=== PATIENT | female | born 1990 | race African-American/Black ===

== ENCOUNTER 2018-11-19 16:50 | Inpatient (IN) | payer OTHER ==
[2018-11-19] MEDS ORDERED: TUBERCULIN PPD 5 TU/0.1ML SYRINGE (IN PATIENT USE ONLY) ID ONE (17:07)
[2018-11-19 17:41] VITALS: BMI 30.2
[2018-11-19] MEDS: DEXTROSE 5%-LACTATED RINGERS 1,000 ML IV SCH (18:00)
[2018-11-19 18:22] LABS: BASO % 0.3 % (0-2.0); EOS % 0.6 % (0-4.5); HEMATOCRIT 34.2 % (32.4-45.2); HEMOGLOBIN 11.1 GM/dL (10.7-15.3); LYMPH % 20.4 % (8-40); MCH 28.7 pg (25.7-33.7); MCHC 32.5 g/dl (32.0-36.0); MEAN CELL VOLUME 88.4 fl (80-96); MEAN PLT VOLUME 9.9 fl (7.5-11.1); MONO % 9.2 % (3.8-10.2); NEUT % 69.5 % (42.8-82.8); PLATELET COUNT 218 K/MM3 (134-434); RBC 3.87 M/mm3 (3.60-5.2); RDW 13.2 % (11.6-15.6); WHITE BLOOD COUNT 8.9 K/mm3 (4.0-10.0)
[2018-11-19 18:37] LABS: INR 0.9 (0.83-1.09); PROTHROMBIN TIME (PATIENT) 10.6 SEC (9.7-13.0)
[2018-11-19 18:54] LABS: CALCIUM 8.3 mg/dL (8.5-10.1); CREATININE 0.6 mg/dL (0.55-1.3); POTASSIUM 3.9 mmol/L (3.5-5.1)
[2018-11-19] MEDS ORDERED: PROMETHAZINE HCL 25 MG/1 ML VIAL IVPUSH ONE (20:27)
[2018-11-19] MEDS ORDERED: BUTORPHANOL TARTRATE 1 MG/ML VIAL IVPB ONE (20:27)
[2018-11-19] MEDS ORDERED: DINOPROSTONE 10 MG VAGINAL SUPPOSITORY VG ONE (20:31)
--- NOTE | 2018-11-19 20:32 | HP ---
Past Medical History - Primary Care Physician PCP:: Kathleen Teixeira - Admission Chief Complaint: 27yo P0 @ 39.1 wks for IOL, no VB, no LOF, + FM History of Present Illness: 1. Sickle trait - FOB neg, as well as negative for SMA and non syndromic hearing loss 2. GBS neg History Source: Patient, Medical Record Limitations to Obtaining History: No Limitations - Past Medical History ...: 2 ...Para: 0 ...Term: 0 ...: 0 ...Spon : 0 ...Induced : 1 ...Multiple Gestation: 0 ...LMP: 02/19/18 ... Weeks Gestation by Dates: 39.0 ...EDC by Dates: 11/26/18 ...EDC by Sono: 11/25/18 - Past Surgical History Past Surgical History: Yes: None Hx Myomectomy: No Hx Transabdominal Cerclage: No Additional Surgical History: TOP x 1 - Smoking History Smoking history: Never smoked Have you smoked in the past 12 months: No - Alcohol/Substance Use Hx Alcohol Use: No History of Substance Use: reports: None - Social History Usual Living Arrangement: Yes: With Spouse Home Medications - Allergies Allergies/Adverse Reactions: Allergies Allergy/AdvReac Type Severity Reaction Status Date / Time mushroom Allergy Severe Swelling Verified 11/19/18 17:10 - Home Medications Home Medications: Ambulatory Orders Pnv No.95/Ferrous Fum/Folic AC [ Formula] 1 each PO DAILY 11/06/18 Family Disease History - Family Disease History Family History: Unremarkable Review of Systems - Review of Systems Constitutional: reports: No Symptoms Eyes: reports: No Symptoms HENT: reports: No Symptoms Neck: reports: No Symptoms Cardiovascular: reports: No Symptoms Respiratory: reports: No Symptoms Gastrointestinal: reports: No Symptoms Genitourinary: reports: No Symptoms Breasts: reports: No Symptoms Reported Musculoskeletal: reports: No Symptoms Integumentary: reports: No Symptoms Neurological: reports: No Symptoms Endocrine: reports: No Symptoms Hematology/Lymphatic: reports: No Symptoms Psychiatric: reports: No Symptoms Pain Intensity: 0 Physical Exam - Maternity Vital Signs: Vital Signs Temperature 98.0 F 11/19/18 20:00 Pulse Rate 84 11/19/18 20:00 Respiratory Rate 18 11/19/18 20:00 Blood Pressure 120/74 11/19/18 20:00 O2 Sat by Pulse Oximetry (%) Constitutional: Yes: Well Nourished, No Distress, Calm Eyes: Yes: WNL, Conjunctiva Clear, EOM Intact HENT: Yes: WNL, Atraumatic, Normocephalic Neck: Yes: WNL, Supple, Trachea Midline Cardiovascular: Yes: WNL, Regular Rate and Rhythm Lungs: Clear to auscultation Breast(s): Yes: WNL - Abdominal Exam/OB Fundal Height: 39 Number of Fetuses: Single Presentation: Vertex Contractions: No Monitor Mode: External Heart Rate (range): 130 Heart Rate Location: Midline Category: I Accelerations: Uniform Decelerations: None - Vaginal Exam/OB Vaginal Bleediing: No Speculum Exam: No Dilatation (cm): 1 Effacement (%): short Amniotic Membrane Status: Intact Amniotic Fluid: Yes: Clear Meconium: Light Presentation: Vertex/Position Station: -3 - Physical Exam Musculoskeletal: Yes: WNL Extremities: Yes: WNL Edema: No Integumentary: Yes: WNL ...Motor Strength: WNL Psychiatric: Yes: WNL, Alert, Oriented - Labs Lab Results: Opos/NR/HepB neg/HIV neg/RI/GCT - 100/ CBC, BMP 11/19/18 17:20 11/19/18 17:20 Assessment/Plan 27yo P0 @ 39.1 wks Admit to L&D for IOL at term Labs, IVF Category 1 FHR EFW 7.5lb, gynecoid pelvis Cervidil placed into posterior fornix pros and cons of CURTIS vs. c/section discussed labor consent signed all questions answered
[2018-11-20] MEDS: DEXTROSE 5%-LACTATED RINGERS 1,000 ML IV SCH (00:30)
--- NOTE | 2018-11-20 09:58 | PN ---
Ante-Partal Exam - Subjective Subjective: w/o complaints. She feels weak contractions and good movement. Vital Signs: Vital Signs Temperature 98.6 F 11/20/18 08:00 Pulse Rate 86 11/20/18 09:00 Respiratory Rate 18 11/20/18 09:00 Blood Pressure 120/85 11/20/18 09:00 O2 Sat by Pulse Oximetry (%) Bleeding: No Headache: No Visual changes: No Right upper quadrant pain: No Pain (scale 1-10): 150 - Contractions Contractions: Yes (q4min) Regularity: Regular Intensity: Mild Monitor Mode: External - Exam during Labor Variability: Minimal, Moderate Heart Rate Location: Midline Category: II Monitor Accelerations: Absent Monitor Decelerations: Variable Exam: Vaginal Dilatation (cm): 0 Effacement (%): 50 Amniotic Membrane Status: Intact Presentation: Vertex Station: -3 (Adequate gynecoid pelvimetry) - Intrapartum Hemorrhage Risk Medium Risk Factors: None High Risk Factors: None Risk Score: 0 Risk Level: Low Risk - Assessment/Plan Assessment/Plan: P0 with at 39w2d admitted for labor indx. Pt is not in labor. Fetus with Category II tracing. Pt had cervidil removed earlier. She showered and ate. plan to monitor tracing. The pt's position was changed to lateral. Clinical data was d/w pt.
[2018-11-20] MEDS ORDERED: LIDO 2%/EPI 1:200000 PRESRVFRE (20 ML SDVIAL) ONE (17:12)
[2018-11-20] MEDS: ELECTROLYTE-148 SOLN 1,000 ML IV SCH (18:00)
[2018-11-20] MEDS ORDERED: ELECTROLYTE-148 SOLN 500 ML IV SCH (18:00)
[2018-11-20] MEDS ORDERED: CITRIC ACID/SODIUM CITRATE 30 ML UNIT-DOSE CUP PO ONE (18:30)
[2018-11-20] MEDS ORDERED: ePHEDrine SULFATE 50 MG/1 ML AMPULE ONE (19:57)
[2018-11-20] MEDS ORDERED: morphine SULFATE/Preservative Free 0.5 MG/ML (1cc Syringe) ONE (19:57)
[2018-11-20] MEDS ORDERED: ceFAZolin SODIUM 1 GM VIAL ONE (20:12)
[2018-11-20] MEDS ORDERED: OXYTOCIN 10 UNITS/ML VIAL ONE (20:13)
[2018-11-20] MEDS: OXYTOCIN 20 UNITS in 0.9% NS 20 UNIT/1,000 ML INFUS.BAG IV SCH (21:25)
[2018-11-20] MEDS ORDERED: OXYTOCIN 20 UNITS in 0.9% NS 20 UNIT/1,000 ML INFUS.BAG IV ONE (21:28)
--- NOTE | 2018-11-20 21:41 | PN ---
Progress Note (SOAP) - Subjective Chief Complaint: Pt continued to have variable decels throughout the day. The pitocin induction could not be started due to Category II tracing. The pt ate regular diet at 9am and the decision was to proceed with C/S once the pt is 8hrs NPO. - Current Medications Current Medications: Active Medications Dextrose/Lactated Ringer's (D5-Lr -) 1,000 mls @ 125 mls/hr IV ASDIR [facility] Last Admin: 11/19/18 18:00 Dose: 125 mls/hr Dextrose/Lactated Ringer's (D5-Lr -) 1,000 mls @ 125 mls/hr IV ASDIR [facility] Last Admin: 11/20/18 00:30 Dose: 125 mls/hr Oxytocin/Sodium Chloride (Normal Saline+20 Units Oxytocin -) 20 unit in 1,000 mls @ 125 mls/hr IV ASDIR LAURIE Stop: 11/21/18 17:44 Parenteral Electrolytes (Plasma-Lyte 148 -) 1,000 mls @ 125 mls/hr IV ASDIR [facility] Last Admin: 11/20/18 18:00 Dose: 125 mls/hr - Objective Vital Signs: Vital Signs Temperature 97.9 F 11/20/18 14:00 Pulse Rate 71 11/20/18 15:00 Respiratory Rate 18 11/20/18 15:00 Blood Pressure 121/84 11/20/18 15:00 O2 Sat by Pulse Oximetry (%) Constitutional: Yes: Well Nourished Eyes: Yes: WNL HENT: Yes: WNL Neck: Yes: WNL Cardiovascular: Yes: WNL Respiratory: Yes: WNL, Regular Gastrointestinal: Yes: WNL, Normal Bowel Sounds, Soft Musculoskeletal: Yes: WNL Extremities: Yes: WNL Peripheral Pulses WNL: Yes Edema: Yes Edema: LLE: Trace, RLE: Trace Integumentary: Yes: WNL Psychiatric: Yes: WNL, Alert, Oriented Labs Lab Results: CBC, BMP 11/19/18 17:20 11/19/18 17:20 Assessment/Plan Category II FHT. Unable to proceed with labor indx. Unfavorable cervix. Plan to proceed with C/S delivery. The pt underwent an uncomplicated primary C/S
[2018-11-20] MEDS ORDERED: oxyCODONE HCL 5 MG TABLET PO PRN (21:42)
[2018-11-20] MEDS ORDERED: METHYLERGONOVINE MALEATE 0.2 MG/1 ML AMP IM PRN (21:42)
[2018-11-20] MEDS ORDERED: IBUPROFEN 800 MG/8 ML IJ IVPB PRN (21:42)
[2018-11-20] MEDS ORDERED: SENNOSIDES/DOCUSATE COMBO (SENNA PLUS) TABLET (UD) PO PRN (21:42)
--- NOTE | 2018-11-20 21:47 | OP ---
Operative Note - Note: Operative Date: 11/20/18 Pre-Operative Diagnosis: at EGA 39w2d. Nonressuring FHT. Operation: Primary LT C/S Findings: Live baby girl in vtx presentation. No meconium in amniotic fluid. 9-9. Wt [id number]. Normal uterus, fallopian tubes, ovaries. Post-Operative Diagnosis: Same as Pre-op Surgeon: Greg Saha Tobacco Dipper: Elder Alfaro (No MD available for director surgical) Anesthesiologist/GAS REGULATOR REPAIRER: Kee Mcqueen Anesthesia: Spinal Specimens Removed: Placenta Estimated Blood Loss (mls): 500 Drains & Tubes with Location: Sahu cath Drains, Volume Out (mls): 75 Blood Volume Replaced (mls): 0 Fluid Volume Replaced (mls): 1,700 Operative Report Dictated: Yes
[2018-11-20] MEDS ORDERED: ONDANSETRON 4 MG/2 ML VIAL IVPUSH PRN (22:40)
[2018-11-21 07:44] LABS: BASO % 0.4 % (0-2.0); EOS % 0.3 % (0-4.5); HEMATOCRIT 33.4 % (32.4-45.2); HEMOGLOBIN 10.8 GM/dL (10.7-15.3); LYMPH % 13.9 % (8-40); MCH 28.7 pg (25.7-33.7); MCHC 32.4 g/dl (32.0-36.0); MEAN CELL VOLUME 88.7 fl (80-96); MEAN PLT VOLUME 9.6 fl (7.5-11.1); MONO % 8.4 % (3.8-10.2); PLATELET COUNT 194 K/MM3 (134-434); RBC 3.77 M/mm3 (3.60-5.2); RDW 13.5 % (11.6-15.6); WHITE BLOOD COUNT 10.6 K/mm3 (4.0-10.0)
[2018-11-21] MEDS: SIMETHICONE 80 MG TAB.CHEW (FP) PO PRN ×2 (09:41→23:19)
[2018-11-21] MEDS: ENOXAPARIN NA (PORCINE) 40 MG/0.4 ML DISP.SYRIN SQ SCH (09:41)
--- NOTE | 2018-11-21 12:22 | OP ---
DATE OF OPERATION: 11/20/2018 PREOPERATIVE DIAGNOSES: at estimated gestational age of 39 weeks 2 days, non-reassuring heart tracing. POSTOPERATIVE DIAGNOSES: at estimated gestational age of 39 weeks 2 days, non-reassuring heart tracing, delivered. PROCEDURE: Primary low-transverse section via Pfannenstiel skin incision. SURGEON: Greg Saha MD TAPEMAN: GENTRY Nagel NOTE: No MD available for surgical assistance at the time of surgery, which necessitated assistance by a physician's assistant manager retail, Elder Alfaro. ANESTHESIOLOGIST: Kee Mcqueen DO ANESTHESIA: Spinal. COMPLICATIONS: None. PATHOLOGY: Placenta. FINDINGS: Live baby girl in vertex presentation. No meconium in amniotic fluids. Apgars 9 and 9, baby's weight 6 pounds 13 ounces. Normal uterus, fallopian tubes and ovaries. IV FLUIDS: 1700 mL. URINE OUTPUT: 75 mL of clear urine at the end of the procedure. ESTIMATED BLOOD LOSS: 500 mL. SURGERY: The patient was met preoperatively. Risks, benefits, and alternatives of surgery were discussed in detail. All questions were answered. The patient was then brought to the OR with the IV running. She was placed on a surgical table in a sitting supine position. The spinal anesthesia was achieved without difficulty. The patient was then placed in a supine position with a leftward tilt. A Sahu catheter was left to drain to gravity. The patient was prepped and draped in the usual sterile fashion. A timeout procedure was conducted as per standard protocol. The surgeon then proceeded with the operation. A Pfannenstiel skin incision was made with the knife approximately 2 cm above the pubic symphysis. The incision was carried down to the level of fascia. The fascia was incised in the midline and the incision was extended bilaterally using Ruano scissors. The fascia was dissected away from the rectus muscles superiorly and inferiorly using blunt and sharp dissection. The rectus muscles were in the midline using sharp and blunt dissection. The peritoneum was identified and entered sharply. The peritoneal incision was extended superiorly and inferiorly using sharp dissection. The bladder peritoneum was incised, and the incision was extended bilaterally using Metzenbaum scissors. The bladder was then dissected away from the lower uterine segment and reflected downwards. The uterus was incised transversely in the lower uterine segment. The incision was extended bilaterally using bandage scissors. The baby was delivered from vertex presentation and without complications. There was no meconium in amniotic fluids. The umbilical cord was clamped and cut. The baby was crying spontaneously and was handed to the awaiting labor economist. The placenta was removed manually and without complications. The uterus was cleared of clots and debris. The uterine incision was then repaired using a 0 Biosyn suture in a running locking stitch. Good hemostasis was noted. The uterus was noted to be well contracted. The uterine incision was then imbricated using a secondary layer of closure with a 0 Biosyn suture. Once again good hemostasis was confirmed. The bladder peritoneum was reapproximated using a 0 Biosyn suture. The operative site was then irrigated using copious amounts of normal saline. Once the saline was aspirated, good hemostasis was confirmed. The parietal peritoneum was then reapproximated using a 2-0 chromic suture with a running stitch. The rectus muscles were approximated in the midline using 2-0 chromic sutures. The fascia was closed using a 0 Vicryl suture with a running stitch. The Tremayne's fascia and adipose tissues were approximated using several interrupted 2-0 Vicryl sutures. The skin was closed using a 4-0 Vicryl suture with a subcutaneous stitch. Good hemostasis was noted. Sponge, lap, needle counts were correct. The patient was transferred to recovery room in stable condition and awake. Amber CASTRO/[id number]
--- NOTE | 2018-11-21 16:03 | PN ---
Post Progress Note - Subjective Subjective: Patient without acute complaints. Reports tolerating oral intake without nausea or vomiting. Ambulating without dizziness. Denies fevers or chills. Pain well controlled with oral pain medication. Pumping/breast feeding without issue. Not passing flatus yet, no BM Post Day: 1 Type of Delivery: Primary C/S Vital Signs: Vital Signs Temperature 98.3 F 11/21/18 14:00 Pulse Rate 93 H 11/21/18 14:00 Respiratory Rate 18 11/21/18 14:00 Blood Pressure 112/73 11/21/18 14:00 O2 Sat by Pulse Oximetry (%) 99 11/20/18 23:00 Breast Exam: Yes: Soft Uterus: Yes: Fundus Firm, Fundus below umbilicus, Non-tender Incision: Yes: Dressing dry and intact Abdomen/GI: Yes: Abdomen soft, Passing flatus, Tolerating PO Lochia: Yes: Rubra Lochia, amount: Small Extremities: Yes: Calves non-tender Perineum: Yes: Intact Activity: Ambulating - Labs Labs: CBC WBC 10.6 K/mm3 (4.0-10.0) H 11/21/18 07:25 RBC 3.77 M/mm3 (3.60-5.2) 11/21/18 07:25 Hgb 10.8 GM/dL (10.7-15.3) 11/21/18 07:25 Hct 33.4 % (32.4-45.2) 11/21/18 07:25 MCV 88.7 fl (80-96) 11/21/18 07:25 MCH 28.7 pg (25.7-33.7) 11/21/18 07:25 MCHC 32.4 g/dl (32.0-36.0) 11/21/18 07:25 RDW 13.5 % (11.6-15.6) 11/21/18 07:25 Plt Count 194 K/MM3 (134-434) 11/21/18 07:25 MPV 9.6 fl (7.5-11.1) 11/21/18 07:25 Absolute Neuts (auto) 8.1 K/mm3 (1.5-8.0) H 11/21/18 07:25 Neutrophils % 77.0 % (42.8-82.8) 11/21/18 07:25 Lymphocytes % 13.9 % (8-40) D 11/21/18 07:25 Monocytes % 8.4 % (3.8-10.2) 11/21/18 07:25 Eosinophils % 0.3 % (0-4.5) 11/21/18 07:25 Basophils % 0.4 % (0-2.0) 11/21/18 07:25 Nucleated RBC % 0 % (0-0) 11/21/18 07:25 Assessment/Plan POD#1 s/p primary LTC/S doing well, stable, afebrile. Asymptomatic for anemia. Post op care reviewed. Continue routine care. Ambulation encouraged Advance diet as tolerated.
[2018-11-21] MEDS ORDERED: BISACODYL 10 MG SUPP.RECT RC PRN (21:42)
[2018-11-21] MEDS: ACETAMINOPHEN 325 MG TABLET (FP) PO PRN (23:19)
[2018-11-21] MEDS: IBUPROFEN 600 MG TABLET (FP) PO PRN (23:21)
--- NOTE | 2018-11-22 08:40 | PN ---
Post Progress Note - Subjective Subjective: Patient without acute complaints. Reports tolerating oral intake without nausea or vomiting. Ambulating without dizziness. Denies fevers or chills. Pain well controlled with oral pain medication. without difficulty. Passing flatus, no BM yet Post Day: 1 Type of Delivery: Primary C/S Vital Signs: Vital Signs Temperature 97.8 F 11/22/18 08:32 Pulse Rate 90 11/22/18 08:32 Respiratory Rate 20 11/22/18 08:32 Blood Pressure 124/85 11/22/18 08:32 O2 Sat by Pulse Oximetry (%) 99 11/20/18 23:00 Breast Exam: Yes: Soft Uterus: Yes: Fundus Firm, Fundus below umbilicus Incision: Yes: Sutures intact. No: Redness, Oozing Abdomen/GI: Yes: Abdomen soft, Abdominal Distention (mild soft, nontender), Tender (mild incisional), Passing flatus, Tolerating PO Lochia: Yes: Rubra Lochia, amount: Small Extremities: Yes: Calves non-tender, Edema (trace) Activity: Ambulating - Labs Labs: CBC WBC 10.6 K/mm3 (4.0-10.0) H 11/21/18 07:25 RBC 3.77 M/mm3 (3.60-5.2) 11/21/18 07:25 Hgb 10.8 GM/dL (10.7-15.3) 11/21/18 07:25 Hct 33.4 % (32.4-45.2) 11/21/18 07:25 MCV 88.7 fl (80-96) 11/21/18 07:25 MCH 28.7 pg (25.7-33.7) 11/21/18 07:25 MCHC 32.4 g/dl (32.0-36.0) 11/21/18 07:25 RDW 13.5 % (11.6-15.6) 11/21/18 07:25 Plt Count 194 K/MM3 (134-434) 11/21/18 07:25 MPV 9.6 fl (7.5-11.1) 11/21/18 07:25 Absolute Neuts (auto) 8.1 K/mm3 (1.5-8.0) H 11/21/18 07:25 Neutrophils % 77.0 % (42.8-82.8) 11/21/18 07:25 Lymphocytes % 13.9 % (8-40) D 11/21/18 07:25 Monocytes % 8.4 % (3.8-10.2) 11/21/18 07:25 Eosinophils % 0.3 % (0-4.5) 11/21/18 07:25 Basophils % 0.4 % (0-2.0) 11/21/18 07:25 Nucleated RBC % 0 % (0-0) 11/21/18 07:25 Assessment/Plan 27 yo POD # 2 s/p Primary CD, afebrile, vital signs stable, doing well 1. Continue routine postoperative care. 2. Encourage ambulation and incentive spirometer use 3. Continue oral pain medication 4. Anticipate discharge home postoperative day #3 or #4
[2018-11-22] MEDS: ENOXAPARIN NA (PORCINE) 40 MG/0.4 ML DISP.SYRIN SQ SCH (09:52)
[2018-11-22] MEDS: SIMETHICONE 80 MG TAB.CHEW (FP) PO PRN (09:55)
[2018-11-22] MEDS: IBUPROFEN 600 MG TABLET (FP) PO PRN (09:55)
[2018-11-22] MEDS: ACETAMINOPHEN 325 MG TABLET (FP) PO PRN (09:56)
[2018-11-23] MEDS: ELECTROLYTE-148 SOLN 1,000 ML IV SCH ×2 (04:41→04:42)
[2018-11-23] MEDS: DEXTROSE 5%-LACTATED RINGERS 1,000 ML IV SCH ×4 (04:41→04:42)
[2018-11-23] MEDS: OXYTOCIN 20 UNITS in 0.9% NS 20 UNIT/1,000 ML INFUS.BAG IV SCH ×3 (04:41→04:42)
[2018-11-23] MEDS: IBUPROFEN 600 MG TABLET (FP) PO PRN (07:59)
[2018-11-23] MEDS: SIMETHICONE 80 MG TAB.CHEW (FP) PO PRN (07:59)
[2018-11-23] MEDS: ACETAMINOPHEN 325 MG TABLET (FP) PO PRN (07:59)
[2018-11-23 08:10] LABS: BASO % 0.4 % (0-2.0); EOS % 1.3 % (0-4.5); HEMATOCRIT 32.4 % (32.4-45.2); HEMOGLOBIN 10.4 GM/dL (10.7-15.3); LYMPH % 24.7 % (8-40); MCH 28.4 pg (25.7-33.7); MCHC 31.9 g/dl (32.0-36.0); MEAN CELL VOLUME 88.9 fl (80-96); MEAN PLT VOLUME 9.2 fl (7.5-11.1); MONO % 7.5 % (3.8-10.2); NEUT % 66.1 % (42.8-82.8); RBC 3.65 M/mm3 (3.60-5.2); RDW 13.8 % (11.6-15.6); WHITE BLOOD COUNT 8.1 K/mm3 (4.0-10.0)
[2018-11-23 08:46] VITALS: BP 122/72; PULSE 74; TEMP 98.6
[2018-11-23] MEDS: ENOXAPARIN NA (PORCINE) 40 MG/0.4 ML DISP.SYRIN SQ SCH (09:46)
[2018-11-23 12:47] LABS: PLATELET COUNT 239 K/MM3 (134-434)
--- NOTE | 2018-11-23 14:32 | DS ---
Physical Exam-MANAGER INTELLIGENCE Vital Signs: Vital Signs Temperature 98.6 F 11/23/18 08:43 Pulse Rate 74 11/23/18 08:43 Respiratory Rate 18 11/23/18 08:43 Blood Pressure 122/72 11/23/18 08:43 O2 Sat by Pulse Oximetry (%) 99 11/20/18 23:00 Constitutional: Yes: Well Nourished, No Distress, Calm Eyes: Yes: WNL, Conjunctiva Clear, EOM Intact HENT: Yes: WNL, Atraumatic, Normocephalic Neck: Yes: WNL, Supple, Trachea Midline Cardiovascular: Yes: WNL, Regular Rate and Rhythm Respiratory: Yes: WNL, Regular, CTA Bilaterally Gastrointestinal: Yes: WNL ...Rectal Exam: Yes: WNL Renal/: Yes: WNL ....Post : Yes: Uterus firm, Uterus non-tender, Slight lochia rubra Breast(s): Yes: WNL Musculoskeletal: Yes: WNL Extremities: Yes: WNL Edema: Yes Edema: LLE: Trace, RLE: Trace Integumentary: Yes: WNL Wound/Incision: Yes: Clean/Dry, Well Approximated, Sutures Intact Neurological: Yes: WNL, Alert, Oriented ...Motor Strength: WNL Psychiatric: Yes: WNL, Alert, Oriented Labs: CBC, BMP 11/23/18 07:40 11/19/18 17:20 Delivery - Delivery Section: Low Flap Transverse Type of Anesthesia: Spinal Episiotomy/Laceration: None EBL (cc): 500 Delivery, Single - Stages of Labor Date of Delivery: 11/20/18 Time of Delivery: 20:32 Time Placenta Delivered: 20:33 Placenta: Yes: Expressed - Condition of Wheel Braider/Ear Muff Assembler Present: Yes Name: Marbin Paula Infant Gender: Female Weight: 6 lb 12 oz Position: Left, OT Total Hours ROM (Hrs/Mins): 53min - 1 Minute Total Score: 9 5 Minutes Total Score: 9 - [place] Feeding Plan Initial Plan: Exclusive throughout hospitalization Discharge Summary Reason For Visit: INDUCTION OF LABOR Procedures: Principal: LST c/s Condition: Good - Instructions Diet, Activity, Other Instructions: regular diet, if fever, pain, heavy vaginal bleeding call MD follow up office 1 week Referrals: Greg Saha MD [Staff Physician] - Disposition: HOME - Home Medications Comprehensive Discharge Medication List: Ambulatory Orders Pnv No.95/Ferrous Fum/Folic AC [ Formula] 1 each PO DAILY 11/06/18 Ibuprofen [Motrin -] 600 mg PO QID #28 tablet 11/23/18
--- NOTE | 2018-11-23 15:21 | PATH ---
Surgical Pathology Report Patient Name: DEX SANTANA [facility]. Rec. #: [id number] /Age/Gender: 1990 (Age: 27) / F Account: [id number] Location: [facility] OBS/INTELLIGENCE MANAGER Taken: 11/20/2018 Received: 11/21/2018 Reported: 11/23/2018 Physicians: Greg Saha M.D. Specimen(s) Received PLACENTA Clinical History at 39 weeks and 1 day for primary , nonreassuring heart rate Final Diagnosis PLACENTA: THIRD TRIMESTER PLACENTA WITH FOCAL CALCIFICATIONS. TRIVASCULAR CORD. MEMBRANES WITH NO DIAGNOSTIC ABNORMALITIES. Electronically Signed Dashawn Esquivel M.D. Gross Description The specimen is received fresh labeled placenta and is a 479 gram, 16.0 x 15.0 x 2.8 cm. placenta with attached membranes and umbilical cord. The attached membranes are kim, translucent with focal opacities and insert marginally. The umbilical cord measures 22 cm. in length and averages 1.1 cm. in diameter. The cord inserts eccentrically, 4 cm. to the nearest margin. No true knots or strictures are identified. Cut surface of the umbilical cord reveals 3 vessels. The surface is piedra-blue with minimal fibrin deposition and appropriate caliber vessels. The maternal surface is red-brown and intact. Sectioning reveals red-brown, spongy parenchyma. No lesions are identified. Geophysical Laboratory Chief sections are submitted in three cassettes as follows: 1- membrane rolls and umbilical cord; 2-3- full thickness sections of placenta. 11/22/2018 [facility]11/22/2018
== END 2018-11-23 14:40 | disposition home or self-care (01) | DRG 788 ==
LOC: JLDR 16:50 → J3W 11-20 23:00
PROVIDERS: ADMIT Obstetrics & Gynecology; ATTEND Obstetrics & Gynecology
PROC: 3E0P7VZ Introduction of Hormone into Female Reproductive, Via Natural or Artificial Opening (ICD-10-PCS; 2018-11-19)
PROC: 10D00Z1 Extraction of Products of Conception, Low, Open Approach (ICD-10-PCS; principal; 2018-11-20)
DX: O76 Abnormality in fetal heart rate and rhythm complicating labor and delivery (principal); O99.02 Anemia complicating childbirth; D57.3 Sickle-cell trait; O99.013 Anemia complicating pregnancy, third trimester; D64.9 Anemia, unspecified; Z3A.39 39 weeks gestation of pregnancy; Z37.0 Single live birth
CPT/HCPCS: 36415; 80048; 85025; 85610; 85730; 86593; 86850; 86900; 86901; 88307-TC

== ENCOUNTER 2020-10-27 12:55 | Day surgery (SDC) | payer BC, OTHER ==
[2020-10-27 12:59] VITALS: BMI 26.7
[2020-10-27] MEDS ORDERED: ACETAMINOPHEN 1000 MG/100 ML VIAL (NON FORMULARY) IVPB ONE (13:40)
[2020-10-27] MEDS ORDERED: LACTATED RINGERS SOLUTION 1000 ML INFUS.BAG IV ONE (13:40)
[2020-10-27] MEDS ORDERED: ACETAMINOPHEN INJECTION 100 ML IVPB ONE (13:51)
[2020-10-27 15:13] LABS: BASO % 0.3 % (0-2.0); EOS % 0.5 % (0-4.5); HEMATOCRIT 40.5 % (32.4-45.2); HEMOGLOBIN 13.7 GM/dL (10.7-15.3); LYMPH % 36.1 % (8-40); MCH 31.1 pg (25.7-33.7); MCHC 33.8 g/dl (32.0-36.0); MEAN CELL VOLUME 92.1 fl (80-96); MEAN PLT VOLUME 9.2 fl (7.5-11.1); MONO % 5.6 % (3.8-10.2); NEUT % 57.5 % (42.8-82.8); PLATELET COUNT 292 K/MM3 (134-434); RDW 13.7 % (11.6-15.6)
[2020-10-27 15:20] LABS: INR 1.09 (0.83-1.09); PROTHROMBIN TIME (PATIENT) 13.2 SEC (9.7-13.0)
[2020-10-27 15:37] LABS: ALBUMIN 4.4 g/dl (3.4-5.0); BLOOD UREA NITROGEN 10.6 mg/dL (7-18); CALCIUM 8.7 mg/dL (8.5-10.1)
[2020-10-27 15:40] LABS: CREATININE 0.7 mg/dL (0.55-1.3)
[2020-10-27 15:42] LABS: BILIRUBIN,TOTAL 0.5 mg/dL (0.2-1); TOT PROT 8.5 g/dl (6.4-8.2)
[2020-10-27] MEDS ORDERED: ONDANSETRON 4 MG/2 ML VIAL IVPUSH PRN (18:19)
[2020-10-27] MEDS ORDERED: DEXAMETHASONE SOD PHOSPHATE 4 MG/1 ML VIAL ONE (18:28)
[2020-10-27] MEDS ORDERED: KETOROLAC TROMETHAMINE 30 MG/1 ML VIAL ONE (18:28)
[2020-10-27] MEDS ORDERED: ROCURONIUM BROMIDE 50 MG/5 ML SYRINGE ONE (18:28)
[2020-10-27] MEDS ORDERED: MIDAZOLAM HCL 2 MG/2 ML SINGLE DOSE VIAL ONE (18:29)
[2020-10-27] MEDS ORDERED: ETOMIDATE 20 MG/10 ML AMPUL IVPUSH ONE (18:29)
[2020-10-27] MEDS ORDERED: LACTATED RINGERS SOLUTION 1,000 ML IV SCH (18:30)
[2020-10-27] MEDS ORDERED: ceFAZolin SODIUM 1 GM VIAL ONE (19:19)
[2020-10-27] MEDS ORDERED: ceFAZolin SODIUM 1 GM VIAL IVPB ONE (19:20)
[2020-10-27] MEDS ORDERED: NEOSTIGMINE METHYLSULFATE 0.5 MG/ML - 10 ML MDV ONE (19:34)
[2020-10-27] MEDS ORDERED: GLYCOPYRROLATE 0.2 MG/1 ML VIAL ONE (19:34)
[2020-10-27] MEDS ORDERED: BUPIVACAINE HCL/PF 0.5% (5 MG/ML) 30 ML VIAL IJ ONE (20:11)
[2020-10-27] MEDS ORDERED: ACETAMINOPHEN 325 MG TABLET (FP) PO PRN (20:52)
[2020-10-27] MEDS ORDERED: IBUPROFEN 600 MG TABLET (FP) PO PRN (20:52)
[2020-10-27] MEDS ORDERED: oxyCODONE HCL 5 MG TABLET PO PRN (20:52)
[2020-10-28 09:37] VITALS: BP 102/56; PULSE 66; TEMP 98.6
== END 2020-10-28 09:31 | disposition home or self-care (01) ==
LOC: JER 12:55 → JASUSAT 14:08 → J8W 22:00 → JASUSAT 10-28 09:31
PROVIDERS: ATTEND Obstetrics & Gynecology
PROC: 0UT54ZZ Resection of Right Fallopian Tube, Percutaneous Endoscopic Approach (ICD-10-PCS; 2020-10-27)
PROC: 10T24ZZ Resection of Products of Conception, Ectopic, Percutaneous Endoscopic Approach (ICD-10-PCS; principal; 2020-10-27 19:00)
DX: O00.101 Right tubal pregnancy without intrauterine pregnancy (principal)
CPT/HCPCS: 36415; 80053; 84702; 85025; 85610; 86850; 86900; 86901; 93005; 93010; 94760; 99285-25; C9803; J0131; U0003; U0005